=== PATIENT | female | born 2000 | race Caucasian/White ===

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

== ENCOUNTER 2018-01-19 10:04 | Emergency (ER) | END 2018-01-19 11:54 | disposition home or self-care (01) ==

== ENCOUNTER 2018-03-31 23:24 | Emergency (ER) | payer OTHER ==
[~2018-03-31] VITALS: Ht 157.5 cm; Wt 45.5 kg
[~2018-03-31 23:24] MED LIST changes: +DICL50TA11 PO; +IBUP-1542 PO; +ONDA4TAB14 PO; +PENI500T PO; +PHEN177S43 MT
[2018-03-31 23:31] VITALS: BP 134/70; PULSE 81; RESP 18; Ht 157.5 cm; Wt 45.5 kg
[2018-03-31] MEDS ORDERED: NAPR-985 PO (23:49)
--- NOTE | 2018-04-01 00:51 | ERD ---
ER Documentation Chief Complaint Chief Complaint sore throat x week, stopped taking atb for strep throat HPI 18-year-old female presenting with sore throat. Patient had no fevers. She sta angelica that 2 months ago she was treated for strep did not complete her full course of antibiotics. She was concerned that her strep throat has returned. She has no runny nose or cough. Denies other medical problems. NKDA. Surgical history denies. Social history denies ROS All systems reviewed and are negative except as per history of present illness. Medications Home Meds Active Scripts Naproxen* (Naprosyn*) 500 Mg Tablet, 500 MG PO BID PRN for PAIN AND/OR INFLAMMATION, #30 TAB Prov:THAI LEGER PA-C 03/31/18 Penicillin V Potassium* (Penicillin V K*) 500 Mg Tab, 500 MG PO TID for 10 Days, TAB Prov:ÁNGEL TIJERINA MD 01/19/18 Ibuprofen* (Motrin*) 600 Mg Tab, 600 MG PO Q6H PRN for PAIN AND OR ELEVATED TEMP, #30 TAB Prov:ÁNGEL TIJERINA MD 01/19/18 Phenol* (Chloraseptic* [place]) 177 Ml [place].pump, 2 SPRAY MT Q2H PRN for SORE THROAT, #1 BOTTLE Prov:SINGH PERRY DO 04/16/16 Diclofenac Sodium* (Diclofenac Sodium*) 50 Mg Tablet.dr, 50 MG PO TID, #10 TAB Prov:SINGH PERRY DO 04/16/16 Ondansetron (Ondansetron Odt) 4 Mg Tab.rapdis, 4 MG PO Q6H PRN for NAUSEA AND/OR VOMITING, #8 TAB Prov:SINGH PERRY DO 04/16/16 Reported Medications Naproxen* (Naproxen*) 250 Mg Tablet, 250 MG PO Q8 08/19/13 Allergies Allergies: Coded Allergies: No Known Allergy (Unverified , 03/31/18) PMhx/Soc Medical and Surgical Hx: pt denies Surgical Hx History of Surgery: No Anesthesia Reaction: No Hx Neurological Disorder: Yes (migraine headache) Hx Respiratory Disorders: No Hx Cardiac Disorders: No Hx Miscellaneous Medical Probl: No Hx Alcohol Use: No Hx Substance Use: No Hx Tobacco Use: No Smoking Status: Never smoker FmHx Family History: No diabetes, No coronary disease, No other Physical Exam Vitals Vital Signs Date Temp Pulse Resp B/P (MAP) Pulse Ox O2 O2 Flow FiO2 Time Delivery Rate 03/31/18 98.4 81 18 134/70 99 23:31 (91) Physical Exam GENERAL: The patient is well-appearing, well-nourished, in no acute distress HEENT: Atraumatic. Conjunctivae are pink. Pupils equal, round, and reactive to light. There is no scleral icterus. Tympanic membranes clear bilaterally. Oropharynx clear. CHEST: Clear to auscultation bilaterally. There are no rales, wheezes or rhonchi. HEART: Regular rate and rhythm. No murmurs, clicks, rubs or gallops. No S3 or S4. Procedures/MDM MDM: 18-year-old female presenting with sore throat. Patient's oral exam is within normal limits and I have low suspicion for strep. I have low suspicion for peritonsillar retropharyngeal abscess. Patient likely has viral enteritis and will be treated with supportive medications. Patient is told symptoms change or worsen to immediately return to the ER. I do not feel the patient requires antibiotics. All questions answered at discharge Departure Diagnosis: Primary Impression: Sore throat Condition: Stable Patient Instructions: When You Have a Sore Throat Referrals: [facility] (PCP) Additional Instructions: FOLLOW UP WITH YOUR PRIMARY CARE PHYSICIAN TOMORROW.Return to this facility if you are not improving as expected. THAI LEGER PA-C Apr 01, 2018 00:51
== END 2018-04-01 | disposition home or self-care (01) ==
LOC: FTE 23:24
DX: J02.9 Acute pharyngitis, unspecified (principal)
CPT/HCPCS: 99282

== ENCOUNTER 2018-07-07 09:52 | Emergency (ER) | payer OTHER ==
[~2018-07-07] VITALS: Ht 157.5 cm; Wt 46.1 kg
[~2018-07-07 09:52] MED LIST changes: +NAPR-985 PO
[2018-07-07 09:58] VITALS: BP 135/79; PULSE 97; RESP 20; Ht 157.5 cm; Wt 46.1 kg
--- NOTE | 2018-07-07 10:12 | ERD ---
ER Documentation Chief Complaint Chief Complaint c/o mid to epigastric abd pain with n/v x2 days HPI 18-year-old female, previously healthy, presents the emergency department, complaining of mid epigastric pain for 2 days, associated with nausea and vomiting. Otherwise, no fever, no chills, no rashes, no diarrhea or constipation. ROS All systems reviewed and are negative except as per history of present illness. Medications Home Meds Active Scripts Acetaminophen* (Tylenol*) 325 Mg Tablet, 2 TAB PO Q6 PRN for PAIN AND OR ELEVATED TEMP, #20 TAB Prov:LUDA ROCHA MD 07/07/18 Ondansetron Hcl* (Zofran*) 4 Mg Tablet, 4 MG PO Q8H PRN for NAUSEA AND/OR VOMITING for 3 Days, #10 TAB Prov:LUDA ROCHA MD 07/07/18 Ranitidine Hcl* (Zantac*) 150 Mg Tablet, 150 MG PO BID PRN for EPIGASTRIC PAIN for 5 Days, #10 TAB Prov:LUDA ROCHA MD 07/07/18 Naproxen* (Naprosyn*) 500 Mg Tablet, 500 MG PO BID PRN for PAIN AND/OR INFLAMMATION, #30 TAB Prov:THAI LEGER PA-C 03/31/18 Penicillin V Potassium* (Penicillin V K*) 500 Mg Tab, 500 MG PO TID for 10 Days, TAB Prov:ÁNGEL TIJERINA MD 01/19/18 Ibuprofen* (Motrin*) 600 Mg Tab, 600 MG PO Q6H PRN for PAIN AND OR ELEVATED TEMP, #30 TAB Prov:ÁNGEL TIJERINA MD 01/19/18 Phenol* (Chloraseptic* [place]) 177 Ml [place].pump, 2 SPRAY MT Q2H PRN for SORE THROAT, #1 BOTTLE Prov:SINGH PERRY DO 04/16/16 Diclofenac Sodium* (Diclofenac Sodium*) 50 Mg Tablet.dr, 50 MG PO TID, #10 TAB Prov:SNIGH PERRY DO 04/16/16 Ondansetron (Ondansetron Odt) 4 Mg Tab.rapdis, 4 MG PO Q6H PRN for NAUSEA AND/OR VOMITING, #8 TAB Prov:SINGH PERRY DO 04/16/16 Reported Medications Naproxen* (Naproxen*) 250 Mg Tablet, 250 MG PO Q8 08/19/13 Allergies Allergies: Coded Allergies: No Known Allergy (Unverified , 07/07/18) PMhx/Soc History of Surgery: No Anesthesia Reaction: No Hx Neurological Disorder: Yes (migraine headache) Hx Respiratory Disorders: No Hx Cardiac Disorders: No Hx Miscellaneous Medical Probl: No Hx Alcohol Use: No Hx Substance Use: No Hx Tobacco Use: No Smoking Status: Never smoker Physical Exam Vitals Vital Signs Date Temp Pulse Resp B/P (MAP) Pulse Ox O2 O2 Flow FiO2 Time Delivery Rate 07/07/18 97.9 97 20 135/79 95 09:58 (97) Physical Exam Patient alert, oriented, vital signs stable. HEENT: Normocephalic, atraumatic. EYES: PERRLA, EOMI, Sclera and conjunctiva appear normal. EARS: Canals clear, tympanic membranes WNL. THROAT: Normal oropharynx. NECK: Supple, No lymphadenopathy. Full ROM without pain or tenderness. HEART: RRR, no rubs, murmurs, clicks or gallops. LUNGS: Clear to auscultation. ABDOMEN: Soft, non-tender without masses or hepatosplenomegaly. EXTREMITIES: No edema bilaterally. BACK: Full ROM, no deformity, normal back exam NEURO: Cranial nerves grossly intact, no motor or sensory deficit SKIN: No rashes, no petechia. Result Diagram: 07/07/18 1030 07/07/18 1030 Results 24 hrs Laboratory Tests Test 07/07/18 10:30 White Blood Count 10.8 10^3/ul Red Blood Count 4.99 10^6/ul Hemoglobin 14.4 g/dl Hematocrit 45.7 % Mean Corpuscular Volume 91.6 fl Mean Corpuscular Hemoglobin 28.9 pg Mean Corpuscular Hemoglobin Concent 31.5 g/dl Red Cell Distribution Width 13.1 % Platelet Count 273 10^3/UL Mean Platelet Volume 11.0 fl Immature Granulocytes % 0.600 % Neutrophils % 81.8 % Lymphocytes % 13.0 % Monocytes % 3.5 % Eosinophils % 0.6 % Basophils % 0.5 % Nucleated Red Blood Cells % 0.0 /100WBC Immature Granulocytes # 0.060 10^3/ul Neutrophils # 8.8 10^3/ul Lymphocytes # 1.4 10^3/ul Monocytes # 0.4 10^3/ul Eosinophils # 0.1 10^3/ul Basophils # 0.1 10^3/ul Nucleated Red Blood Cells # 0.0 10^3/ul Urine Color YELLOW Urine Clarity SLIGHTLY CLOUDY Urine pH 5.0 Urine Specific [place] 1.028 Urine Ketones TRACE mg/dL Urine Nitrite NEGATIVE mg/dL Urine Bilirubin NEGATIVE mg/dL Urine Urobilinogen NEGATIVE mg/dL Urine Leukocyte Esterase NEGATIVE [place]/ul Urine Microscopic RBC 1 /HPF Urine Microscopic WBC 4 /HPF Urine Squamous Epithelial Cells FEW /HPF Urine Mucus MANY /HPF Urine Hemoglobin NEGATIVE mg/dL Urine Glucose NEGATIVE mg/dL Urine Total Protein NEGATIVE mg/dl Urine Test NEGATIVE Sodium Level 143 mmol/L Potassium Level 4.9 mmol/L Chloride Level 102 mmol/L Carbon Dioxide Level 29 mmol/L Anion Gap 12 Blood Urea Nitrogen 15 mg/dl Creatinine 0.66 mg/dl Est Glomerular Filtrat Rate mL/min > 60 mL/min Glucose Level 123 mg/dl Calcium Level 10.3 mg/dl Total Bilirubin 0.2 mg/dl Direct Bilirubin 0.00 mg/dl Indirect Bilirubin 0.2 mg/dl Aspartate Amino Transf (AST/SGOT) 18 IU/L Alanine Aminotransferase (ALT/SGPT) 11 IU/L Alkaline Phosphatase 79 IU/L Total Protein 8.9 g/dl Albumin 5.2 g/dl Globulin 3.70 g/dl Albumin/Globulin Ratio 1.40 Lipase 80 U/L Current Medications Medications Dose Sig/Rosalina Start Time Status Last (Trade) Ordered Route PRN Stop Time Admin Dose Reason Admin Sodium 1,000 ml @ Q1H STAT 07/07/18 DC 07/07/18 Chloride 1,000 mls/hr IV 10:17 07/07/18 10:26 11:16 Morphine 2 mg ONCE STAT 07/07/18 DC 07/07/18 Sulfate IV 10:17 07/07/18 10:27 (morphine) 10:22 Ondansetron 4 mg ONCE STAT 07/07/18 DC 07/07/18 HCl (Zofran IV 10:17 07/07/18 10:26 Inj) 10:22 Famotidine 20 mg ONCE STAT 07/07/18 DC 07/07/18 (Pepcid Iv) IV 10:17 07/07/18 10:26 10:22 Procedures/MDM Physical exam unremarkable, patient in no distress, hydrated, adequate oral intake, abdomen, soft, nontender, no peritoneal signs. Differential diagnosis include but not limited to: gastrointestinal infection bacterial/viral, UTI, appendicitis, colitis, food poisoning, food intolerance. Low suspicion for acute abdomen Physical examination and clinical presentation consistent most likely with viral gastroenteritis. During the ED course the patient remained stable, overall improvement of the symptoms after receiving treatment in the emergency department with IV fluids and IV medications. Clinical impression discussed with the patient who agrees with management. The patient is stable to be discharged home, Some side effects of prescribed medications (headache, rash, nausea, vomiting, diarrhea, interactions with other medications) were reviewed. The patient requires a follow up with the primary care provider in the next 48h. If symptoms persist, worsen or new symptoms develop, then patient should return to the ED immediately. Disclaimer: Inadvertent spelling and grammatical errors are likely due to EHR/di ctation software use and do not reflect on the overall quality of patient care. Also, please note that the electronic time recorded on this note does not necessarily reflect the actual time of the patient encounter. Departure Diagnosis: Primary Impression: Acute gastroenteritis Condition: Stable Additional Instructions: Thank you very much for allowing us to participate in your care. Your health and safety is our top priority at [facility]. Call your primary care doctor TOMORROW for an appointment during the next 2-4 days and bring all the information and medications prescribed. Have prescriptions filled and follow precisely the directions on the label. If the symptoms get worse and your provider is unavailable, return to the Emergency Department immediately. LUDA ROCHA MD Jul 07, 2018 10:12
[2018-07-07] MEDS ORDERED: ONDANSETRON 4 MG INJ IV STA (10:17)
[2018-07-07] MEDS ORDERED: FAMOTIDINE 20 MG INJ IV STA (10:17)
[2018-07-07] MEDS ORDERED: morphine 2 MG INJ IV STA (10:17)
[2018-07-07] MEDS ORDERED: SOD CHLORIDE 0.9% 1,000 ML IV STA (10:17)
[2018-07-07] MEDS ORDERED: RANI150T35 PO (11:28)
[2018-07-07] MEDS ORDERED: ONDA4TAB8 PO (11:28)
[2018-07-07] MEDS ORDERED: ACET325T33 PO (11:30)
== END 2018-07-07 11:33 | disposition home or self-care (01) ==
LOC: FTE 09:52
DX: K52.9 Noninfective gastroenteritis and colitis, unspecified (principal)
CPT/HCPCS: 36415; 80053; 81001; 83690; 84703; 85025; 96361; 96374; 96375; J2270; J2405; J7030; Z7502; Z7610; 81003